=== PATIENT | male | born 1970 | race African-American/Black ===

== ENCOUNTER 2018-05-12 16:16 | Emergency (ER) | payer MEDICAID ==
[~2018-05-12] VITALS: Ht 182.9 cm; Wt 91.4 kg
[~2018-05-12 16:16] MED LIST: TERB250T3 PO
[2018-05-12 16:40] VITALS: BP 146/86
[2018-05-12] MEDS ORDERED: HYDROcodone/APAP 5/325 TABLET PO STA (17:32)
[2018-05-12] MEDS ORDERED: HYDROcodone/APAP 5/325 TABLET ONE (18:01)
== END 2018-05-12 18:09 | disposition home or self-care (01) ==
LOC: ED 17:45
DX: S62.234A Other nondisplaced fracture of base of first metacarpal bone, right hand, initial encounter for closed fracture (principal); J45.909 Unspecified asthma, uncomplicated; X58.XXXA Exposure to other specified factors, initial encounter; Y93.89 Activity, other specified; Y92.89 Other specified places as the place of occurrence of the external cause; Y99.8 Other external cause status
CPT/HCPCS: 99284